=== PATIENT | male | born 1955 | race Caucasian/White ===

== ENCOUNTER 2018-04-27 17:18 | Inpatient (IN) | payer BC ==
[~2018-04-27] VITALS: Ht 188 cm; Wt 109.3 kg
[2018-04-27] MEDS ORDERED: LIPITOR10 MG PO (17:37)
[2018-04-27] MEDS ORDERED: HYTRIN 2MG CAPSU2 MG PO (17:38)
[2018-04-27] MEDS ORDERED: BENAZEPRIL HCL20 MG PO (17:38)
[2018-04-27] MEDS ORDERED: FARXIGA5 MG PO (17:38)
[2018-04-27] MEDS ORDERED: HYDROCHLOROTH12.5 M1 PO (17:38)
[2018-04-27] MEDS ORDERED: METFORMIN HCL500 MG PO (17:39)
[2018-04-27] MEDS ORDERED: AMARYL4 MG PO (17:39)
[2018-04-27] MEDS ORDERED: PRILOSEC 20 MG20 MG PO (17:39)
[2018-04-27] MEDS ORDERED: CENTRUM SILVER1 EAC2 PO (17:40)
[2018-04-27] MEDS ORDERED: IBUPROFEN 200200 M1 PO (17:40)
[2018-04-27] MEDS ORDERED: ASPIRIN325 PO (17:40)
[2018-04-27] MEDS ORDERED: FISH OIL 1,001000 M2 PO (17:40)
[2018-04-27] MEDS ORDERED: ESTER-C 1,0001 EACH PO (17:41)
[2018-04-27] MEDS ORDERED: SUPER B-50 COM1 EACH PO (17:41)
[2018-04-27] MEDS ORDERED: DHEA25 M1 PO (17:42)
[2018-04-27] MEDS ORDERED: BILBERRY80 MG PO (17:42)
[2018-04-27] MEDS ORDERED: VITAMIN E400 UNI4 PO (17:42)
[2018-04-27] MEDS ORDERED: VITAMIN D3400 UNIT PO (17:42)
[2018-04-27] MEDS ORDERED: OLIVE LEAF EXT250 MG PO (17:43)
[2018-04-27] MEDS ORDERED: SELENIUM100 MCG PO (17:43)
[2018-04-27] MEDS ORDERED: UBIQUINOL100 MG PO (17:44)
[2018-04-27] MEDS ORDERED: GLUTATHIONE PO (17:44)
[2018-04-27] MEDS ORDERED: [UNRECOGNIZED DRUG - OTHER] (17:44)
[2018-04-27] MEDS ORDERED: PRO (17:45)
[2018-04-27] MEDS ORDERED: CHLOR TABS (17:45)
[2018-04-27] MEDS ORDERED: [UNRECOGNIZED DRUG - OTHER] (17:45)
[2018-04-27 17:55] LABS: ABSOLUTE EOSINOPHILS 0.1 thou/uL (0.0-0.7); ABSOLUTE LYMPHOCYTES 1.8 thou/uL (0.8-5.3); ABSOLUTE MONOCYTES 0.9 thou/uL (0.0-1.2); BASOPHILS 0.3 %; EOSINOPHILS 0.7 %; HEMATOCRIT 46.3 % (42.0-52.0); HEMOGLOBIN 15.9 gm/dL (14.0-18.0); LYMPHOCYTES 16.8 %; MCH 30.2 pg (26.0-34.0); MCHC 34.4 g/dL (28.0-37.0); MONOCYTES 8.6 %; MPV 7.8 fl. (7.2-11.1); NUCLEATED RBCS 0 /100WBC; PLATELET COUNT* 207 thou/uL (150-400); POLYS 73.6 %; RBC 5.26 mil/uL (4.50-6.00); RDW-CV 12.7 % (10.5-14.5); WBC 10.9 thou/uL (4.0-11.0)
[2018-04-27 18:01] LABS: CALCIUM 9.1 mg/dL (8.5-10.1); CREATININE 1.2 mg/dL (0.6-1.3); POTASSIUM 3.6 mmol/L (3.5-5.1)
[2018-04-27 18:11] LABS: APTT 25.3 Seconds (25.0-31.3)
[2018-04-27 18:12] LABS: ALBUMIN 4.1 g/dL (3.4-5.0); MAGNESIUM 1.5 mg/dL (1.8-2.4); TOTAL BILIRUBIN 0.8 mg/dL (<0.1-1.0); TOTAL PROTEIN 7.8 g/dL (6.4-8.2); TROPONIN-I LEVEL 0.17 ng/mL (<0.06)
[2018-04-27 20:18] VITALS: BP 117/62
[2018-04-27 20:30] VITALS: BP 108/71
[2018-04-28] VITALS (11 sets, daily range): BP systolic 107–157; BP diastolic 61–85
--- NOTE | 2018-04-28 13:46 | EKG ---
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 04/28/18 1346 1731 1731 Mario Garner MD, [facility] /EPI
--- NOTE | 2018-04-28 16:41 | CARD ---
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 The right wrist was infiltrated with 2% Lidocaine subcutaneous anesthesia. A Slender Glidesheath sheath was inserted into the right radial artery. Coronary angiography was performed using coronary diagnostic catheters. The right coronary system was accessed and visualized with a Diagnostic 6Fr Tig catheter. The left coronary system was accessed and visualized with a Diagnostic 6Fr Tig catheter. The left ventricle was accessed and visualized with a Diagnostic 6 Fr tig catheter. Left ventricular/Aortic Valve gradient assessed . Left ventriculogram was performed in SANCHEZ projection. The patient tolerated the procedure well and there were no complications associated with the procedure. Intraoperative Conscious Sedation Sedation start time: 11:22 Case end Time: 11:34 Fentanyl 25 mcg Versed 1 mg Fluoro Time: 2.1 minutes Dose: DAP 95.3 cGycm2 585 mGy Contrast Type and Amount: Visipaque 80 ml Coronary Angiography The patient's coronary [place] [address] CARDIAC CATH REPORT Name: SANGEETA FINNEGAN Room: [address] IN ..#: [id number] Admission: 04/27/18 Attend Phys: Scooby Brown Discharge: Date of : 51 Report #: [id number] Diagnostic Cath Left Main Normal. LAD Normal in the proximal mid and distal portions. Diagonal 1 Normal. Circumflex Normal. OM1 Large and branch. 10% plaque in the midportion. Right Coronary Calcified in the proximal and midportion with 10% narrowing noted proximal portion. Distally the vessel appears normal. R PDA Normal. RPLV Large and branch. Minimal 10% plaquing in the midportion. Left Ventriculography Left Ventriculography was not performed. Hemodynamics The aortic pressure is 114/69 mmHg with a mean of 90 mmHg. The left ventricular pressure is 106/6 mmHg with a mean of mmHg. The left ventricular end diastolic pressure is 11 mmHg. Conclusion 1. Minimal atherosclerotic coronary artery disease as outlined above. 2. Normal left ventricular end-diastolic pressure. 3. No gradient in the pullback across the aortic valve. Recommendations Aggressive Medical Therapy <ELECTRONICALLY SIGNED> By: Izaiah Maria MD, [facility] 04/28/181640 40 40Michoney Maria MD, FACC /INF
[2018-04-29] VITALS: BP 135/73
[2018-04-29 04:00] VITALS: BP 123/72
[2018-04-29 06:36] LABS: ABSOLUTE EOSINOPHILS 0.1 thou/uL (0.0-0.7); ABSOLUTE LYMPHOCYTES 1.9 thou/uL (0.8-5.3); ABSOLUTE MONOCYTES 0.9 thou/uL (0.0-1.2); ABSOLUTE NEUTROPHILS 6.1 thou/uL (1.6-8.1); BASOPHILS 0.4 %; EOSINOPHILS 0.9 %; LYMPHOCYTES 20.7 %; MCHC 33.9 g/dL (28.0-37.0); MCV 88.5 fL (80.0-100.0); MONOCYTES 10.4 %; MPV 7.9 fl. (7.2-11.1); NUCLEATED RBCS 0 /100WBC; PLATELET COUNT* 204 thou/uL (150-400); POLYS 67.6 %; RBC 4.63 mil/uL (4.50-6.00); RDW-CV 12.5 % (10.5-14.5); WBC 9.1 thou/uL (4.0-11.0)
[2018-04-29 06:43] LABS: CALCIUM 8.8 mg/dL (8.5-10.1); CREATININE 1.1 mg/dL (0.6-1.3); POTASSIUM 3.8 mmol/L (3.5-5.1)
[2018-04-29 06:54] LABS: HEMOGLOBIN 13.9 gm/dL (14.0-18.0)
--- NOTE | 2018-04-29 07:33 | 2DMMODE ---
[place] [address] 2 D/M-MODE ECHOCARDIOGRAM Name: SANGEETA FINNEGAN Room: [address] IN .R.#: [id number] Admission: 04/27/18 Attend Phys: Judah Tai Discharge: Date of : 51 Date of Service: 04/29/18 0732 Report #: [id number] THIS REPORT FOR: //name// APPROVED REPORT Study performed: 04/28/2018 14:09:27 EXAM: Comprehensive 2D, Doppler, and color-flow Echocardiogram Patient Location: Bedside BSA: 2.35 HR: 95 bpm BP: 124/78 mmHg Other Information Study Quality: Good Indications Pulmonary Embolism Chest Pain 2D Dimensions IVSd: 13.61 (7-11mm) LVOT Diam: 22.34 (18-24mm) LVDd: 47.26 mm PWd: 12.30 (7-11mm) Ascending Ao: 32.45 (22-36mm) LVDs: 31.30 (25-40mm) Aortic Root: 34.09 mm Volumes Left Atrial Volume (Systole) LA ESV Index: 15.40 mL/m2 Aortic Valve AoV Peak Vishnu.: 1.25 m/s AO Peak Gr.: 6.30 mmHg LVOT Max P.91 mmHg AO Mean Gr.: 4.09 mmHg LVOT Mean P.51 mmHg LVOT Max V: 0.85 m/s AO V2 VTI: 21.09 cm LVOT Mean V: 0.57 m/s MAYRA (VTI): 3.20 cm2 LVOT V1 VTI: 17.21 cm Mitral Valve E/A Ratio: 0.71 MV Decel. Time: 218.87 ms MV E Max Vishnu.: 0.66 m/s MV PHT: 63.47 [place] [address] 2 D/M-MODE ECHOCARDIOGRAM Name: SANGEETA FINNEGAN Room: [address] IN .R.#: [id number] Admission: 04/27/18 Attend Phys: Judah Tai Discharge: Date of : 51 Date of Service: 04/29/18 0732 Report #: [id number] MVA (PHT): 3.47 cm2 TDI E/Lateral E': 5.50 E/Medial E': 6.60 Medial E' Vishnu.: 0.10 m/s Lateral E' Vishnu.: 0.12 m/s Pulmonary Valve PV Peak Vishnu.: 1.08 m/s PV Peak Gr.: 4.63 mmHg Tricuspid Valve RAP Estimate: 10.00 mmHg TR Peak Gr.: 44.21 mmHg RVSP: 54.21 mmHg PA Pressure: 54.21 mmHg Left Ventricle The left ventricle is normal size. There is normal LV segmental wall motion. Mild concentric left ventricular hypertrophy. Left ventricular systolic function is normal. LVEF is 55-60%. Grade I - abnormal relaxation pattern. Right Ventricle Right ventricle is dilated. The right ventricular systolic function is normal. Atria The left atrium size is normal. The right atrium size is normal. Aortic Valve The aortic valve is normal in structure. No aortic regurgitation is present. There is no aortic valvular stenosis. Mitral Valve The mitral valve is normal in structure. There is no mitral valve regurgitation noted. No evidence of mitral valve stenosis. Tricuspid Valve The tricuspid valve is normal in structure. Trace tricuspid regurgitation. The RVSP is 45-50 mmHg. Pulmonic Valve The pulmonary valve is normal in structure. There is no pulmonic valvular regurgitation[place] [address] 2 D/M-MODE ECHOCARDIOGRAM Name: SANGEETA FINNEGAN Room: [address] IN [facility]#: [id number] Admission: 04/27/18 Attend Phys: Judah Tai Discharge: Date of : 51 Date of Service: 04/29/18 0732 Report #: [id number] The aortic root is normal in size. IVC is dilated. Pericardium There is no pericardial effusion. <Conclusion> The left ventricle is normal size. Mild concentric left ventricular hypertrophy. Left ventricular systolic function is normal. LVEF is 55-60%. Grade I - abnormal relaxation pattern. Right ventricle is dilated. Trace tricuspid regurgitation. The RVSP is 45-50 mmHg. <ELECTRONICALLY SIGNED> By: Izaiah Maria MD, FACC 04/29/1832 1 1 Izaiah Maria MD, FACC /INF
[2018-04-29 08:00] VITALS: BP 137/78
--- NOTE | 2018-04-29 08:22 | CON ---
[address] [address] CONSULTATION Name: SANGEETA FINNEGAN Room: [address] IN .R.#: [id number] Admission: 04/27/18 Attend Phys: Scooby Brown Discharge: Date of : 51 Report #: [id number] THIS REPORT FOR: //name// CC: Judah Thompson INDICATION: Elevated troponin. HISTORY OF PRESENT ILLNESS: The patient is a 62-year-old white male with no prior history of coronary artery disease. He was admitted to the hospital with DVT and pulmonary emboli yesterday. In this setting, he had an elevated troponin. EKG shows sinus rhythm with diminished R waves in the precordial leads and T-wave inversion diffusely. There is subtle ST segment depression. The patient reports having midsternal chest discomfort beginning last week. He has no prior history of coronary artery disease. The pain that he was experiencing was worse with exertion and resolved with rest. He had some associated shortness of breath. He is without other cardiac complaint at this time. PAST MEDICAL HISTORY: 1. DVT. 2. Diabetes. 3. Hypertension. 4. Hyperlipidemia. PAST SURGICAL HISTORY: Noncontributory. HOME MEDICATIONS: Atorvastatin 10 mg at bedtime. Farxiga 5 mg daily, hydrochlorothiazide 12.5 mg daily, terazosin 2 mg at bedtime, Lotensin 20 mg daily, metformin 500 mg b.i.d., glimepiride 4 mg daily, omeprazole 20 mg daily, fish oil 1000 mg daily, aspirin 325 mg daily, ibuprofen 200 mg q.4 hours, Prasterone 25 mg daily, vitamin D 400 units daily and multiple supplements. ALLERGIES: None documented. FAMILY HISTORY: Noncontributory. SOCIAL HISTORY: The patient denies use of tobacco or alcohol. REVIEW OF SYSTEMS: A 14-point review of systems is positive for erectile dysfunction, cough, type 2 diabetes, remote history of peptic ulcer, history of DVT, seasonal allergies, arthritis and glasses. Otherwise, 14-point review of systems unremarkable. PHYSICAL EXAMINATION: [place] [address] CONSULTATION Name: MEGANLenoraSANGEETA Scooby Room: [address] IN [facility]#: [id number] Admission: 04/27/18 Attend Phys: Scooby Brown Discharge: Date of : 51 Report #: [id number] VITAL SIGNS: Blood pressure 139/81, pulse 101 and regular. GENERAL: This is a pleasant gentleman in no distress. Mood and affect appropriate. HEENT: Extraocular muscles intact. Mucous membranes moist. NECK: Shows no jugular venous distention. There are no carotid bruits. CHEST: Reveals clear lung rose. CARDIAC: Reveals regular rhythm without gallop or murmur. ABDOMEN: Reveals normal bowel sounds. Abdomen is soft, nontender. EXTREMITIES: Shows edema of the left lower extremity. IMPRESSION AND RECOMMENDATIONS: 1. Non-ST elevation myocardial infarction, possibly due to pulmonary embolus, although he has EKG changes and symptoms to suggest progressive/unstable angina and non-ST elevation myocardial infarction. We will proceed with coronary catheterization at this time. Further intervention will be pending the results of that study. 2. Deep venosus thrombosis /pulmonary embolism. The patient presently on Lovenox. I would recommend switching to a novel anticoagulant once catheterization is complete. 3. Hypertension, adequately controlled presently. 4. Hyperlipidemia. Continue atorvastatin at current dose. 5. Diabetes per primary physician. <ELECTRONICALLY SIGNED> By: Izaiah Maria MD, FACC 04/29/18 0822 1002 1411Michoney Maria MD, FACC /nt
[2018-04-29] MEDS ORDERED: XARELTO15 MG PO (11:08)
[2018-04-29] MEDS ORDERED: XARELTO20 MG PO (11:11)
[2018-04-29 12:00] VITALS: BP 135/76
[2018-04-29 13:35] VITALS: BP 135/76
== END 2018-04-29 14:45 | disposition home or self-care (01) | DRG 280 ==
LOC: M.ERS 17:18 → M.2W 18:44 → M.TBA-ER 18:44 → M.2W 19:58
PROVIDERS: Emergency Medicine Emergency Medical Services; Family Medicine; Internal Medicine Cardiovascular Disease; ADMIT Internal Medicine
DX: I21.4 Non-ST elevation (NSTEMI) myocardial infarction (principal); I26.99 Other pulmonary embolism without acute cor pulmonale; I82.412 Acute embolism and thrombosis of left femoral vein; I25.10 Atherosclerotic heart disease of native coronary artery without angina pectoris; I10 Essential (primary) hypertension; E78.00 Pure hypercholesterolemia, unspecified; N40.0 Benign prostatic hyperplasia without lower urinary tract symptoms; E11.9 Type 2 diabetes mellitus without complications; Z86.711 Personal history of pulmonary embolism; Z86.718 Personal history of other venous thrombosis and embolism; Z79.84 Long term (current) use of oral hypoglycemic drugs; Z79.899 Other long term (current) drug therapy; Z82.49 Family history of ischemic heart disease and other diseases of the circulatory system